=== PATIENT | male | born 1955 | race Caucasian/White ===

== ENCOUNTER 2019-07-01 21:58 | Inpatient (IN) ==
[2019-07-01] MEDS ORDERED: SODIUM CHLORIDE 0.9% 1000ML 2,000 ML IV ONE (22:12)
[2019-07-01] MEDS ORDERED: ALBUTEROL 0.083% NEBU SOLN 3 ML VIAL NEB STA (22:12)
[2019-07-01] MEDS ORDERED: cefTRIAXone SODIUM 2,000 MG/70 ML BAG IV STA (22:13)
[2019-07-01] MEDS ORDERED: methylPREDNISolone 125 MG/2 ML VIAL IV STA (22:13)
--- NOTE | 2019-07-01 22:15 | Emergency Department Note ---
Entered by Coco Leon acting as a scribe for History of Present Illness General Chief complaint: Respiratory Problems Stated complaint: TROUBLE BREATHING Source: patient Limitations: no limitations History of Present Illness Onset (ago): day(s) 1 Location: chest Pain Consistency: + constant Maximum Pain Intensity: 0 Quality: + other (SOB) Associated symptoms: + other (RLE swelling, sore throat, rhinorrhea) The patient is a 63 year old male who presents to the Emergency Room with complaints of constant SOB that began yesterday with the onset of a respiratory infection. He complains of rhinorrhea and a sore throat that began yesterday. the patient notes that he has a productive cough. He complains of RLE swelling and an ulcer, noting that this has is been progressing over the past 1.5 years. The patient notes a history of asthma. Patient denies ever being intubated for his asthma. He notes he does not have a primary care doctor and generally does not follow-up. Home Medications Home Medications Medication Instructions Recorded Confirmed Type No Known Home Medications 07/01/19 07/01/19 History Allergies Allergy/AdvReac Type Severity Reaction Status Date / Time No Known Allergies Allergy Verified 08/11/02 18:13 [id number] Allergy Unknown . Uncoded 07/01/19 22:50 Past Med/Surg History Medical History (Updated 07/02/19 @ 00:49 by Coco Leon) Asthma Staph infection Social History (Updated 07/01/19 @ 22:18 by Coco Leon) Preferred Language: [place] Communication Ability: Effective Feels Safe at Home: Yes Smoking Status: Never smoker Review of Systems See HPI for pertinent positives & negatives. and A total of 10 systems reviewed and were otherwise negative Physical Exam Vital Signs Vital Signs - 24 hr 07/01/19 21:59 07/01/19 22:23 07/01/19 22:26 Temperature 37.0 C Temperature Source Oral Pulse Rate 143 H 130 H Pulse Rate [Right Finger] Pulse Rate from SpO2 Sensor 131 H Respiratory Rate 22 15 Respiratory Effort / Characteristics Blood Pressure 149/87 H 146/97 H Blood Pressure Mean 107 115 Pulse Oximetry 92 91 89 L Oxygen Delivery Method Room Air Room Air Oxygen Flow Rate Sepsis Recent Fever Within 48 Hours No Sepsis Action Taken by Nursing No Action Required Oxygen Flow Rate - Titration 2 Pulse Oximetry Post Tiitration 93 07/01/19 22:28 07/01/19 22:31 07/01/19 22:41 Temperature Temperature Source Pulse Rate 130 H Pulse Rate [Right Finger] 135 H Pulse Rate from SpO2 Sensor 128 H Respiratory Rate 17 18 Respiratory Effort / Characteristics Non-Labored Spontaneous Blood Pressure 138/84 Blood Pressure Mean 102 Pulse Oximetry 93 93 91 Oxygen Delivery Method Nasal Cannula Room Air Oxygen Flow Rate 2 Sepsis Recent Fever Within 48 Hours Sepsis Action Taken by Nursing Oxygen Flow Rate - Titration Pulse Oximetry Post Tiitration 07/01/19 22:52 07/01/19 23:00 Temperature Temperature Source Pulse Rate 133 H 138 H Pulse Rate [Right Finger] Pulse Rate from SpO2 Sensor 133 H 138 H Respiratory Rate 22 15 Respiratory Effort / Characteristics Blood Pressure 138/84 137/74 Blood Pressure Mean 112 91 Pulse Oximetry 98 99 Oxygen Delivery Method Oxygen Flow Rate Sepsis Recent Fever Within 48 Hours Sepsis Action Taken by Nursing Oxygen Flow Rate - Titration Pulse Oximetry Post Tiitration GENERAL: sitting up in bed, moderate distress, dyspneic with conversation, wearing a hospital gown EYE EXAM: normal conjunctiva OROPHARYNX: no exudate, no erythema, lips, buccal mucosa, and tongue normal and mucous membranes are moist NECK: supple, no nuchal rigidity, no adenopathy, non-tender LUNGS: diffuse wheezing bilaterally, poor air movement HEART: no murmurs, S1 normal and S2 normal, tachycardic ABDOMEN: abdomen soft, non-tender, normo-active bowel sounds, no masses, no rebound or guarding. BACK: Back is symmetrical on inspection and there is no deformity, no midline tenderness, no CVA tenderness. SKIN: no rashes and no bruising UPPER EXTREMITIES: upper extremities are grossly normal. LOWER EXTREMITIES: RLE larger than left with a large ulcer and surrounding erythema measuring 18cm x 12cm. DP 2/4 NEURO EXAM: Normal sensorium, cranial nerves II-XII grossly intact, normal speech, no gross weakness of arms, no gross weakness of legs. Course Course ED COURSE: Vital signs were reviewed and showed tachycardia The patients medical record was reviewed The above diagnostic studies were performed and reviewed. ED treatments and interventions as stated above. 6: The patient was evaluated in room C09. A complete history and physical examination was performed. 0048: I spoke with Dr. Christina, [facility] hospitalist, about the patient's case. He will further evaluate the patient. 0052: Upon reevaluation, the patient is stable. I discussed my findings with the patient and he understands and agrees with the treatment plan. Based on the patients age, coexisting illnesses, exam and lab findings the decision to treat as an inpatient was made. The patient remained stable while under my care. The patient will be evaluated for further management. Administered Medications Levofloxacin/Dextrose (Levaquin/D5w) 750 mg in 150 mls @ 100 mls/hr IV Q24H NEREYDA Stop: 07/03/19 22:14 Last Admin: 07/01/19 23:35 Dose: 100 mls/hr Documented by: [id number] Discontinued Medications Albuterol (Ventolin 0.083% 2.5mg/3ml) 10 mg NEB NOW STA Stop: 07/01/19 22:13 Last Admin: 07/01/19 22:41 Dose: 10 mg Documented by: [id number] Sodium Chloride (Nss 1000ml) 2,000 mls @ 999 mls/hr IV .Q2H1M ONE Stop: 07/02/19 00:12 Last Admin: 07/01/19 23:14 Dose: 999 mls/hr Documented by: [id number] Ceftriaxone Sodium (Rocephin) 2,000 mg in 70 mls @ 140 mls/hr IV NOW STA Stop: 07/01/19 22:42 Last Infusion: 07/02/19 00:20 Dose: 0 mls/hr Documented by: [id number] Admin: 07/01/19 23:46 Dose: 140 mls/hr Documented by: [id number] Methylprednisolone (Solumedrol) 125 mg IV NOW STA Stop: 07/01/19 22:14 Last Admin: 07/01/19 23:35 Dose: 125 mg Documented by: [id number] Critical Care Time Critical Care Time: Yes Total Critical Care Time: 32 I have personally spent 32 minutes of critical care time in the direct management of this patient. This includes bedside care, interpretation of diagnostic studies, and testing, discussion with consultants, patient, and family members, and other required patient management activities. This 32 minutes is in excess of all separately billable procedures. Medical Decision Making Differential Diagnosis Differential diagnoses includes but is not limited to pneumonia, bronchitis, COPD/Asthma exacerbation, pneumothorax, pulmonary embolism, congestive heart failure, acute coronary syndrome Medical Records Attestation: I reviewed the patient's medical records. Home Medications Current Medication List: was personally reviewed by me Laboratory Data Attestation: I reviewed the patient's lab results. Result diagrams: 07/01/19 22:37 07/01/19 22:37 Lab Results 07/01/19 07/01/19 07/01/19 Range/Units 22:37 22:37 22:37 WBC 10.79 (4.8-10.8) K/uL RBC 4.67 L (4.7-6.1) M/uL Hgb 12.4 L (14.0-18.0) g/dL Hct 38.9 L (42-52) % MCV 83.3 (80-100) fL MCH 26.6 (25-34) pg MCHC 31.9 L (32-36) g/dL RDW Std Deviation 46.0 (36.4-46.3) fL RDW Coeff of Mitali 15.1 H (11.5-14.5) % Plt Count 320 (130-400) K/uL MPV 9.6 (7.4-10.4) fL Immature Gran % (Auto) 0.3 % Neut % (Auto) 83.3 % Lymph % (Auto) 6.6 % [place] % (Auto) 8.9 % Eos % (Auto) 0.7 % Baso % (Auto) 0.2 % Immature Gran # (Auto) 0.03 H (0.00-0.02) K/uL Neut # (Auto) 8.99 H (1.4-6.5) K/uL Lymph # (Auto) 0.71 L (1.2-3.4) K/uL [place] # (Auto) 0.96 H (0.11-0.59) K/uL Eos # (Auto) 0.08 (0-0.5) K/uL Baso # (Auto) 0.02 (0-0.2) K/uL PT 11.4 (9.0-12.0) Seconds INR 1.1 (0.9-1.1) APTT 25.3 (21.0-31.0) Seconds PTT Ratio 0.9 Sodium 135 L (136-145) mmol/L Potassium 3.8 (3.5-5.1) mmol/L Chloride 103 (98-107) mmol/L Carbon Dioxide 29 (21-32) mmol/L Anion Gap 3.0 (3-11) BUN 25 H (7-18) mg/dl Creatinine 1.18 (0.6-1.4) mg/dl Est Cr Clr Drug Dosing 76.4 ml/min Est GFR ( Amer) 76.7 Est GFR (Non-Af Amer) 66.2 BUN/Creatinine Ratio 21.1 H (10-20) Glucose 120 H (70-99) mg/dl Lactate (0.4-2.0) mmol/L Calcium 9.2 (8.5-10.1) mg/dl Magnesium 2.0 (1.8-2.4) mg/dl Total Bilirubin 0.3 (0.2-1) mg/dl AST 8 L (15-37) U/L ALT 11 L (12-78) U/L Alkaline Phosphatase 70 (45-117) U/L Troponin I < 0.015 (0-0.045) ng/ml Total Protein 8.8 H (6.4-8.2) gm/dl Albumin 2.7 L (3.4-5.0) gm/dl Globulin 6.1 H (2.5-4.0) gm/dl Albumin/Globulin Ratio 0.4 L (0.9-2) Influenza Type A Ag (Neg) Influenza Type B Ag (Neg) 07/01/19 07/01/19 Range/Units 22:37 22:45 WBC (4.8-10.8) K/uL RBC (4.7-6.1) M/uL Hgb (14.0-18.0) g/dL Hct (42-52) % MCV (80-100) fL MCH (25-34) pg MCHC (32-36) g/dL RDW Std Deviation (36.4-46.3) fL RDW Coeff of Mitali (11.5-14.5) % Plt Count (130-400) K/uL MPV (7.4-10.4) fL Immature Gran % (Auto) % Neut % (Auto) % Lymph % (Auto) % [place] % (Auto) % Eos % (Auto) % Baso % (Auto) % Immature Gran # (Auto) (0.00-0.02) K/uL Neut # (Auto) (1.4-6.5) K/uL Lymph # (Auto) (1.2-3.4) K/uL [place] # (Auto) (0.11-0.59) K/uL Eos # (Auto) (0-0.5) K/uL Baso # (Auto) (0-0.2) K/uL PT (9.0-12.0) Seconds INR (0.9-1.1) APTT (21.0-31.0) Seconds PTT Ratio Sodium (136-145) mmol/L Potassium (3.5-5.1) mmol/L Chloride (98-107) mmol/L Carbon Dioxide (21-32) mmol/L Anion Gap (3-11) BUN (7-18) mg/dl Creatinine (0.6-1.4) mg/dl Est Cr Clr Drug Dosing ml/min Est GFR ( Amer) Est GFR (Non-Af Amer) BUN/Creatinine Ratio (10-20) Glucose (70-99) mg/dl Lactate 1.5 (0.4-2.0) mmol/L Calcium (8.5-10.1) mg/dl Magnesium (1.8-2.4) mg/dl Total Bilirubin (0.2-1) mg/dl AST (15-37) U/L ALT (12-78) U/L Alkaline Phosphatase (45-117) U/L Troponin I (0-0.045) ng/ml Total Protein (6.4-8.2) gm/dl Albumin (3.4-5.0) gm/dl Globulin (2.5-4.0) gm/dl Albumin/Globulin Ratio (0.9-2) Influenza Type A Ag Neg for Influ A (Neg) Influenza Type B Ag Neg for Influ B (Neg) Imaging Data Attestation: I personally reviewed and interpreted this imaging study as follows: My Impression: XR CHEST 2V: No focal infiltrates. No pneumothorax. Radiologist's Impression: Radiology results as stated below per my review and the radiologist's interpretation: US VENOUS RIGHT LOWER EXTREMITY: No evidence of DVT in the visualized veins of the right lower extremity. Subcutaneous edema in the right lower leg. Right inguinal lymphadenopathy of u nknown etiology. Radiologist: Kaveh Oliva MD Study ready at 00:24 and initial results transmitted at 00:38. ECG Data Attestation: I personally reviewed and interpreted this ECG as follows: Indication: + SOB/dyspnea Rate (beats per minute): 140 Rhythm: + sinus tachycardia ECG Findings: + Other (low voltage, ST wave changes in the lateral and inferior leads) Comparison ECG Date: no prior available Additional Comments: Repeat EKG: Sinus tachycardia, 129 BPM, normal axis, no PVCs, normal QTC Blood Pressure Blood Pressure Findings: Elevated blood pressure Blood Pressure Disposition: further management by hospitalist MDM Narrative Patient is a 63-year-old male that presents the ER for shortness of breath associate with cough and runny nose which is been present for the past 2 days. He also notes that he has a history of asthma. He is becoming more more short of breath. Upon arrival he is dyspneic with conversation and can only get out 1 word. Heart rates tachycardic in the 140s. EKG I did believe was consistent with a sinus tach although considered a flutter as well. Patient was given IV fluids and blood work was obtained. Patient was given hour-long neb treatment. Patient was given IV Levaquin and IV Rocephin. Patient was also given IV steroids. Labs show no significant leukocytosis. Hemoglobin of 12. INR was unremarkable. BMP was unremarkable. Magnesium along with LFTs bilirubin and troponin was negative. Influenza was unremarkable. Chest x-ray per my read shows no focal infiltrate. EKG repeat shows a sinus tach with improving heart rate. Patient was monitored closely while in the ER. On reevaluation the wheezing had improved significantly. He is able to carry conversation but is still tachypneic. Discussed with the hospitalist for observation secondary to the large ulcer. Ultrasound shows no DVT. Do favor that he would benefit from observation 2/2 ulcer and asthma exacerbation. Impression & Plan Asthma exacerbation, Cellulitis, Ulcer, Tachycardia, Abnormal EKG Discharge Plan Visit Data Chief Complaint: Respiratory Problems Stated Complaint: TROUBLE BREATHING ED Provider: Chet Gregorio Discharge Problem: Asthma exacerbation, Cellulitis, Ulcer, Tachycardia, Abnormal EKG Patient Disposition: Being Evaluated by Hospitalist Forms Stand Alone Forms: [email or web address] Prescriptions Prescriptions: No Action No Known Home Medications RF: 0 Referrals Referrals: PCP,NO [Primary Care Provider] - Discharge Problem: Asthma exacerbation Qualifiers: Asthma severity: unspecified severity Asthma persistence: unspecified Qualified Code(s): J45.901 - Unspecified asthma with (acute) exacerbation Cellulitis Qualifiers: Site of cellulitis: extremity Site of cellulitis of extremity: lower extremity Laterality: unspecified laterality Qualified Code(s): L03.119 - Cellulitis of unspecified part of limb The scribe's documentation has been prepared under my direction and personally reviewed by me in its entirety. I confirm that the note above accurately reflects all work, treatment, procedures, and medical decision making performed by me.
[2019-07-01 22:54] LABS: Basophils # (auto) 0.02 K/uL (0-0.2); Basophils % (auto) 0.2 %; Eosinophils # (auto) 0.08 K/uL (0-0.5); Eosinophils % (auto) 0.7 %; Hematocrit (blood only) 38.9 % (42-52); Hemoglobin 12.4 g/dL (14.0-18.0); Immature Granulocytes # (auto) 0.03 K/uL (0.00-0.02); Immature Granulocytes % (auto) 0.3 %; Lymphocytes # (auto) 0.71 K/uL (1.2-3.4); Lymphocytes % (auto) 6.6 %; Mean Corpuscular Hemoglobin 26.6 pg (25-34); Mean Corpuscular Hgb Conc 31.9 g/dL (32-36); Mean Corpuscular Volume 83.3 fL (80-100); Mean Platelet Volume 9.6 fL (7.4-10.4); Monocytes # (auto) 0.96 K/uL (0.11-0.59); Monocytes % (auto) 8.9 %; Neutrophils # (auto) 8.99 K/uL (1.4-6.5); Neutrophils % (auto) 83.3 %; Platelet Count 320 K/uL (130-400); RDW Coefficient of Variation 15.1 % (11.5-14.5); Red Blood Count 4.67 M/uL (4.7-6.1); White Blood Count 10.79 K/uL (4.8-10.8)
[2019-07-01 23:05] LABS: INR 1.1 (0.9-1.1); Partial Thromboplastin Ratio 0.9; Partial Thromboplastin Time 25.3 Seconds (21.0-31.0); Prothrombin Time 11.4 Seconds (9.0-12.0)
[2019-07-01 23:11] LABS: Alanine Aminotransferase 11 U/L (12-78); Albumin Level 2.7 gm/dl (3.4-5.0); Aspartate Aminotransferase 8 U/L (15-37); BUN Creatinine Ratio 21.1 (10-20); Blood Urea Nitrogen 25 mg/dl (7-18); Calcium 9.2 mg/dl (8.5-10.1); Carbon Dioxide 29 mmol/L (21-32); Chloride 103 mmol/L (98-107); Creatinine Clr Calc Pharmacy 76.4 ml/min; Est GFR (African American) 76.7; Est GFR (Non-African American) 66.2; Glucose 120 mg/dl (70-99); Potassium 3.8 mmol/L (3.5-5.1); Sodium 135 mmol/L (136-145)
[2019-07-01 23:15] LABS: Albumin Globulin Ratio 0.4 (0.9-2); Alkaline Phosphatase 70 U/L (45-117); Bilirubin,Total 0.3 mg/dl (0.2-1); Globulin 6.1 gm/dl (2.5-4.0); Total Protein 8.8 gm/dl (6.4-8.2); Troponin I < 0.015 ng/ml (0-0.045)
[2019-07-01] MEDS: LEVOFLOXACIN/D5W 750 MG/150 ML BAG IV SCH (23:35)
--- NOTE | 2019-07-02 02:43 | History & Physical Report ---
Date of Service July 02, 2019 Assessment & Plan (1) Asthma exacerbation: Obs tele IV Levaquin Duonebs scheduled QID PRN Albuterol nebs IV Solumedrol 40mg Q6 hr Ordered CT chest. DVT prophylaxis = SCDs and Lovenox (2) Viral URI with cough: (3) Ulcer: Right lower ext. Has never been evaluated according to patient Wound team evaluation. He has chronic lymphedema right lower ext due to previous staph infection. History of Present Illness 63 y/o male presented to the ED with wheezing and SOB of 2 days duration. These symptoms are associated with what the patient describes as having a cold with rhinorrhea, sore throat and productive cough. No F/C. He reports that the only time his asthma is problematic is with respiratory illness. He takes no medications. Patient declines smoking or ETOH use. 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 On a separate issue, he reports having a wound on his right lower leg which has been progressing over the past 1.5 years. He has no pain associated with this, but does report that the area becomes itchy at times. He has lymphedema to the right lower ext which was secondary to a staph infection years ago. Primary Care Provider: NO PCP Allergies Allergy/AdvReac Type Severity Reaction Status Date / Time No Known Allergies Allergy Verified 08/11/02 18:13 [id number] Allergy Unknown . Uncoded 07/01/19 22:50 Home Medications Home Medications Medication Instructions Recorded Confirmed Type No Known Home Medications 07/01/19 07/01/19 History Past Med/Surg History Medical History Asthma Staph infection Social History Preferred Language: Bengali Communication Ability: Effective Feels Safe at Home: Yes Smoking Status: Never smoker Review of Systems Review of Systems: Constitutional- no fever; no weight loss Eyes- no acute visual changes ENT-As in HPI Pulmonary- As in HPI Cardiac- no chest pain, no palpitations, no orthopnea. GI- no nausea, no vomiting, no diarrhea, no melena, no hematochezia - no dysuria, no hematuria Musculoskeletal- no arthralgias, no myalgias Derm- As in HPI Hematologic- no unusual bruising, no unusual bleeding Lymphatics- no adenopathy Endocrine- no polyuria or polydipsia; no heat or cold intolerance Neuro- no headaches, no focal neurologic symptoms Psych- no anxiety, no depression Physical Exam Physical Exam: General- adult male, appears disheveled. Poor hygiene. Head- atraumatic Eyes- PERRL, EOMI, anicteric ENT- oropharynx clear Neck- supple, no JVD, no adenopathy, no thyromegaly; carotids +2/2, no bruits appreciated Lungs- Inspiratory and expiratory wheezes b/l, No rhonchi or crackles. Heart- regular rhythm; no murmur, no gallop, no rub appreciated Abdomen- normal bowel sounds, soft, nontender. Extremities- RLE larger than left with a large ulcer and surrounding erythema measuring 18cm x 12cm. + hemosiderin changes Right lower. Neuro- alert, oriented x 3; PERRL, EOMI; automotive collision estimator II-XII grossly intact, non-focal. Skin- warm & dry, Right lower ext has large ulcer and surrounding erythema measuring 18cm x 12cm. + hemosiderin changes Right lower. Results & Data Vital Signs (Past 12 Hours) Vital Signs Temp Pulse Pulse Resp BP Pulse Ox 07/02/19 02:30 98 H 18 91 07/02/19 02:00 96 H 17 90 07/02/19 01:30 94 H 18 92 07/02/19 01:00 98 H 25 H 07/02/19 00:31 102 H 20 94 07/02/19 00:30 101 H 18 133/63 94 07/02/19 00:25 104 H 34 H 95 07/01/19 23:31 137 H 22 99 07/01/19 23:30 135 H 20 114/63 99 07/01/19 23:00 138 H 15 137/74 99 07/01/19 22:52 133 H 22 138/84 98 07/01/19 22:41 135 H 18 91 07/01/19 22:31 130 H 17 138/84 93 07/01/19 22:28 93 07/01/19 22:26 89 L 07/01/19 22:23 130 H 15 146/97 H 91 07/01/19 21:59 37.0 C 143 H 22 149/87 H 92 Laboratory Results Laboratory Results WBC 10.79 K/uL (4.8-10.8) 07/01/19 22:37 RBC 4.67 M/uL (4.7-6.1) L 07/01/19 22:37 Hgb 12.4 g/dL (14.0-18.0) L 07/01/19 22:37 Hct 38.9 % (42-52) L 07/01/19 22:37 MCV 83.3 fL (80-100) 07/01/19 22:37 MCH 26.6 pg (25-34) 07/01/19 22:37 MCHC 31.9 g/dL (32-36) L 07/01/19 22:37 RDW Std Deviation 46.0 fL (36.4-46.3) 07/01/19 22: RDW Coeff of Mitali 15.1 % (11.5-14.5) H 07/01/19 22:37 Plt Count 320 K/uL (130-400) 07/01/19 22:37 MPV 9.6 fL (7.4-10.4) 07/01/19 22:37 Immature Gran % (Auto) 0.3 % 07/01/19 22:37 Neut % (Auto) 83.3 % 07/01/19 22:37 Lymph % (Auto) 6.6 % 07/01/19 22:37 [place] % (Auto) 8.9 % 07/01/19 22:37 Eos % (Auto) 0.7 % 07/01/19 22:37 Baso % (Auto) 0.2 % 07/01/19 22:37 Immature Gran # (Auto) 0.03 K/uL (0.00-0.02) H 07/01/19 22:37 Neut # (Auto) 8.99 K/uL (1.4-6.5) H 07/01/19 22:37 Lymph # (Auto) 0.71 K/uL (1.2-3.4) L 07/01/19 22:37 [place] # (Auto) 0.96 K/uL (0.11-0.59) H 07/01/19 22:37 Eos # (Auto) 0.08 K/uL (0-0.5) 07/01/19 22:37 Baso # (Auto) 0.02 K/uL (0-0.2) 07/01/19 22:37 PT 11.4 Seconds (9.0-12.0) 07/01/19 22:37 INR 1.1 (0.9-1.1) 07/01/19 22:37 APTT 25.3 Seconds (21.0-31.0) 07/01/19 22:37 PTT Ratio 0.9 07/01/19 22:37 Sodium 135 mmol/L (136-145) L 07/01/19 22:37 Potassium 3.8 mmol/L (3.5-5.1) 07/01/19 22:37 Chloride 103 mmol/L (98-107) 07/01/19 22:37 Carbon Dioxide 29 mmol/L (21-32) 07/01/19 22:37 Anion Gap 3.0 (3-11) 07/01/19 22:37 BUN 25 mg/dl (7-18) H 07/01/19 22:37 Creatinine 1.18 mg/dl (0.6-1.4) 07/01/19 22:37 Est Cr Clr Drug Dosing 76.4 ml/min 07/01/19 22:37 Est GFR ( Amer) 76.7 07/01/19 22:37 Est GFR (Non-Af Amer) 66.2 07/01/19 22:37 BUN/Creatinine Ratio 21.1 (10-20) H 07/01/19 22:37 Glucose 120 mg/dl (70-99) H 07/01/19 22:37 Lactate 1.5 mmol/L (0.4-2.0) 07/01/19 22:37 Calcium 9.2 mg/dl (8.5-10.1) 07/01/19 22:37 Magnesium 2.0 mg/dl (1.8-2.4) 07/01/19 22:37 Total Bilirubin 0.3 mg/dl (0.2-1) 07/01/19 22:37 AST 8 U/L (15-37) L 07/01/19 22:37 ALT 11 U/L (12-78) L 07/01/19 22:37 Alkaline Phosphatase 70 U/L (45-117) 07/01/19 22:37 Troponin I < 0.015 ng/ml (0-0.045) 07/01/19 22:37 Total Protein 8.8 gm/dl (6.4-8.2) H 07/01/19 22:37 Albumin 2.7 gm/dl (3.4-5.0) L 07/01/19 22:37 Globulin 6.1 gm/dl (2.5-4.0) H 07/01/19 22:37 Albumin/Globulin Ratio 0.4 (0.9-2) L 07/01/19 22:37 Influenza Type A Ag Neg for Influ A (Neg) 07/01/19 22:45 Influenza Type B Ag Neg for Influ B (Neg) 07/01/19 22:45 Code Status & VTE Plan VTE Prophylaxis Plan VTE Prophylaxis will be ordered: Yes PG Care Time/CCT Total # of Minutes Spent Total Time Spent: 55 Total Time Spent with Patient: Total time spent is greater than 50% in coordination of care (as documented) at patient's floor/unit and/or counseling patient: (1) Asthma exacerbation Asthma persistence: unspecified Asthma severity: unspecified severity Qualified Code(s): J45.901 - Unspecified asthma with (acute) exacerbation
[2019-07-02] MEDS ORDERED: METOPROLOL TARTRATE 1 MG/ML VIAL IV PRN (03:12)
[2019-07-02] MEDS ORDERED: ALBUTEROL 0.083% NEBU SOLN 3 ML VIAL NEB PRN (03:12)
[2019-07-02] MEDS ORDERED: ONDANSETRON INJ 2 MG/ML 2 ML VIAL IV PRN (03:12)
[2019-07-02] MEDS ORDERED: ACETAMINOPHEN 325 MG TAB PO PRN (03:12)
--- NOTE | 2019-07-02 05:34 | XRay Report ---
XR chest 1V portable CLINICAL HISTORY: SEPSIS dyspnea COMPARISON STUDY: No previous studies for comparison. FINDINGS: Mild emphysematous change. No focal infiltrate. Diaphragms are flattened. IMPRESSION: Mild emphysematous change. Otherwise negative study. ACT 112: Negative or not required by law. The above report was generated using voice recognition software. It may contain grammatical, syntax or spelling errors. Electronically signed by: Tino Mendoza M.D. 07/02/2019 5:33 AM
--- NOTE | 2019-07-02 05:43 | Ultrasound Report ---
US venous doppler LE RT CLINICAL HISTORY: rle larger then left PAIN. EDEMA. COMPARISON STUDY: No previous studies for comparison. FINDINGS: Real-time and color flow Doppler imaging were performed. Flow was seen within the femoral, popliteal and calf veins with no intraluminal thrombus demonstrated. The saphenous vein is patent. IMPRESSION: No evidence of deep venous thrombosis. Several reactive nodes of the right inguinal regio n ACT 112: Negative or not required by law. The above report was generated using voice recognition software. It may contain grammatical, syntax or spelling errors. Electronically signed by: Tino Mendoza M.D. 07/02/2019 5:41 AM
[2019-07-02 05:54] LABS: Hemoglobin 11.8 g/dL (14.0-18.0); Mean Corpuscular Hgb Conc 31.9 g/dL (32-36); Mean Corpuscular Volume 81.5 fL (80-100); Mean Platelet Volume 9.7 fL (7.4-10.4); Platelet Count 300 K/uL (130-400); RDW Coefficient of Variation 15.2 % (11.5-14.5); RDW Standard Deviation 44.5 fL (36.4-46.3); Red Blood Count 4.54 M/uL (4.7-6.1); White Blood Count 9.41 K/uL (4.8-10.8)
[2019-07-02] MEDS: methylPREDNISolone 40 MG in SYRINGE 0 ML IV SCH ×4 (05:57→23:56)
[2019-07-02 06:41] LABS: BUN Creatinine Ratio 18.4 (10-20); Calcium 8.7 mg/dl (8.5-10.1); Creatinine Clr Calc Pharmacy 102.5 ml/min; Est GFR (African American) 107.5; Est GFR (Non-African American) 92.7; Potassium 3.7 mmol/L (3.5-5.1)
[2019-07-02] MEDS: ALBUT/IPRATROP 3MG/0.5MG NEB 3 ML VIAL NEB SCH ×3 (07:08→15:00)
[2019-07-02] MEDS: PANTOprazole 40 MG TAB PO SCH (09:28)
[2019-07-02] MEDS: ENOXAPARIN INJ 40 MG/0.4 ML SYR SQ SCH (09:28)
--- NOTE | 2019-07-02 09:31 | CT Scan Report ---
CT chest wo con CT DOSE: 317.78 mGy.cm HISTORY: Dyspnea Cough, wheezing. TECHNIQUE: Multiaxial CT images of the chest were performed without contrast. A dose lowering techni que was utilized adhering to the principles of ALARA. COMPARISON: None. FINDINGS: The lungs are clear. The mediastinal vascular structures are within normal limits. No media stinal or hilar lymphadenopathy. No pleural effusion or pneumothorax. Limited views of the upper abdo men demonstrate a normal liver and spleen. Mild emphysematous change. IMPRESSION: Mild emphysematous change. No acute process. ACT 112: Negative or not required by law. The above report was generated using voice recognition software. It may contain grammatical, syntax or spelling errors. Electronically signed by: Tino Mendoza M.D. 07/02/2019 9:30 AM
--- NOTE | 2019-07-02 12:51 | Electrocardiogram Report ---
Test Reason : Blood Pressure : / mmHG Vent. Rate : 140 BPM Atrial Rate : 144 BPM P-R Int : 000 ms QRS Dur : 106 ms QT Int : 324 ms P-R-T Axes : 000 050 028 degrees QTc Int : 494 ms Poor data quality, interpretation may be adversely affected Sinus tachycardia Nonspecific ST abnormality Abnormal ECG No previous ECGs available Confirmed by Myles Guzmán ([id number]) on 07/02/2019 12:51:22 PM Referred By: REFERRED SELF Confirmed By:Myles Guzmán
[2019-07-02] MEDS: LEVALBUTEROL 1.25MG/0.5ML NEB NEB SCH (19:22)
[2019-07-02] MEDS: LEVOFLOXACIN/D5W 750 MG/150 ML BAG IV SCH (20:39)
[2019-07-03] MEDS: LEVALBUTEROL 1.25MG/0.5ML NEB NEB SCH ×4 (00:29→18:58)
[2019-07-03] MEDS: ENOXAPARIN INJ 40 MG/0.4 ML SYR SQ SCH (07:48)
[2019-07-03] MEDS: methylPREDNISolone 40 MG in SYRINGE 0 ML IV SCH ×4 (07:48→23:58)
[2019-07-03] MEDS: PANTOprazole 40 MG TAB PO SCH (07:48)
--- NOTE | 2019-07-03 11:07 | Hospitalist Progress Note ---
Date of Service July 03, 2019 Assessment & Plan (1) Asthma exacerbation: Obs tele Will consider admission as patient needs to be seen by wound care for problem #2 continue IV Levaquin Duonebs scheduled QID PRN Albuterol nebs will taper IV Solumedrol Ordered CT chest: reviewed DVT prophylaxis = SCDs and Lovenox (2) Viral URI with cough: likely viral etiology. will need PFT as outpatient. (3) Ulcer: Right lower ext. Has never been evaluated according to patient Wound team evaluation. this will be done on Thursday He has chronic lymphedema right lower ext due to previous staph infection. Subjective 63 yo male reports feeling better in regards to his breathing. He informs me that his right lower leg has had lymphedema since an infection he had in his ankle on 2000. He states he has developed a wound which worsened about a year and a half ago. Since then he has been wrapping it on his own. He does not followup with any providers. As the wound worsened, he decided to come to the hospital. Review of Systems Review of Systems: Constitutional- no fever; no weight loss Eyes- no acute visual changes ENT-As in HPI Pulmonary- As in HPI Cardiac- no chest pain, no palpitations, no orthopnea. GI- no nausea, no vomiting, no diarrhea, no melena, no hematochezia - no dysuria, no hematuria Musculoskeletal- no arthralgias, no myalgias Derm- As in HPI Hematologic- no unusual bruising, no unusual bleeding Lymphatics- no adenopathy Endocrine- no polyuria or polydipsia; no heat or cold intolerance Neuro- no headaches, no focal neurologic symptoms Psych- no anxiety, no depression Physical Exam Physical Exam: General- adult male, Poor hygiene. Head- atraumatic Eyes- PERRL, EOMI, anicteric ENT- oropharynx clear Neck- supple, no JVD, no adenopathy, no thyromegaly; carotids +2/2, no bruits appreciated Lungs- Inspiratory and expiratory wheezes b/l, No rhonchi or crackles. Heart- regular rhythm; no murmur, no gallop, no rub appreciated Abdomen- normal bowel sounds, soft, nontender. Extremities- RLE larger than left with a large ulcer and surrounding erythema measuring 18cm x 12cm. Neuro- alert, oriented x 3; PERRL, EOMI; silver solution mixer II-XII grossly intact, non-focal. . Results & Data Vital Signs (Past 12 Hours) Vital Signs Temp Pulse Pulse Resp BP Pulse Ox 07/03/19 07:24 36.7 C 74 18 123/69 93 07/03/19 07:10 82 18 95 07/03/19 07:09 88 07/03/19 03:27 36.7 C 87 19 130/72 94 07/03/19 00:29 93 H 16 93 07/02/19 23:41 36.8 C 87 20 111/58 L 91 PG Care Time/CCT Total # of Minutes Spent Total Time Spent with Patient: Total time spent is greater than 50% in coordination of care (as documented) at patient's floor/unit and/or counseling patient: (1) Asthma exacerbation Asthma persistence: unspecified Asthma severity: unspecified severity Qualified Code(s): J45.901 - Unspecified asthma with (acute) exacerbation
--- NOTE | 2019-07-03 12:50 | Electrocardiogram Report ---
Test Reason : Blood Pressure : / mmHG Vent. Rate : 129 BPM Atrial Rate : 129 BPM P-R Int : 144 ms QRS Dur : 110 ms QT Int : 332 ms P-R-T Axes : 000 072 028 degrees QTc Int : 486 ms Sinus tachycardia Otherwise normal ECG When compared with ECG of 01-JUL-2019 22:09, No significant change was found Confirmed by Myles Guzmán ([id number]) on 07/03/2019 12:50:52 PM Referred By: REFERRED SELF Confirmed By:Myles Guzmán
[2019-07-03] MEDS: AZITHROMYCIN 250 MG TAB PO SCH (21:18)
[2019-07-04] MEDS: LEVALBUTEROL 1.25MG/0.5ML NEB NEB SCH ×4 (00:55→19:43)
[2019-07-04] MEDS: PANTOprazole 40 MG TAB PO SCH (08:00)
[2019-07-04] MEDS: predniSONE 50 MG TAB PO SCH (08:00)
[2019-07-04] MEDS: ENOXAPARIN INJ 40 MG/0.4 ML SYR SQ SCH (08:02)
[2019-07-04] MEDS: AZITHROMYCIN 250 MG TAB PO SCH (21:05)
--- NOTE | 2019-07-04 22:39 | Hospitalist Progress Note ---
Date of Service July 04, 2019 Assessment & Plan (1) Asthma exacerbation: nearly resolved, responding well to steroids, antibiotics and nebulizers Duonebs scheduled QID Prednisone with gradual taper on discharge complete [address] chest: mild emphysematous changes, no other abnormalities d/c tomorrow on Prednisone and Azithromycin (2) Viral URI with cough: likely viral etiology. will need PFT as outpatient once he is recovered (3) Ulcer: Right lower ext. Has never been evaluated according to patient He has chronic lymphedema right lower ext due to previous staph infection. appreciate e business project manager visit today will check arterial dopplers tomorrow AM, will plan for d/c tomorrow with wound clinic follow up next Thursday d/c instruction: clean with sterile saline daily, cover with Aquacel Ag, secure with Kerlix Subjective patient breathing a lot better, responding well to steroids and nebulizers minimal cough, no chest pain eating well describes his lower extremity wound, has gotten worse over past year says he has never seen the wound clinic or even a PCP the skin will be itchy from time to time, no pain, occasional weaping of the wound never bleeds, no erythema around the wound, occasional fever/chills discussed with e business project manager, recommends getting arterial dopplers as LUCAS was not reliable Review of Systems Review of Systems: All systems reviewed & are unremarkable except as noted in HPI & below Respiratory: + cough and + dyspnea on exertion; no dyspnea, no sputum production and no wheezing Cardiovascular: no chest pain and no edema Integumentary: + wounds (lymphedema wound) Physical Exam Constitutional: WD/WN, vitals as above Eyes: PERRL, conjunctivae normal, anicteric sclerae ENMT: external ear and nose normal, oropharynx normal Neck: trachea midline, no thyromegaly Respiratory: normal respiratory effort; no respiratory distress Auscultation: + rhonchi and + wheezes (bilaterally) Cardiovascular: RRR, no murmur, no edema Gastrointestinal (Abdomen): normal bowel sounds, soft, nontender, no hepatosplenomegaly Musculoskeletal: no cyanosis or clubbing, extremities motor strength 5/5 Skin: + wound (right medial lower leg, open, wet, granulation tissue) Neurologic: patellar DTR's 2+ bilat, sensation intact and PERRL, EOMI, accommodation nl, no face palsy, no dysarthria Psychiatric: A+Ox3, euthymic affect Lymphatic: no cervical or axillary lymphadenopathy Results & Data Vital Signs (Past 12 Hours) Vital Signs Temp Pulse Resp BP Pulse Ox 07/04/19 19:44 81 16 94 07/04/19 15:26 36.7 C 84 18 135/79 98 07/04/19 13:48 91 H 18 91 Medications Administered Current Inpatient Medications Acetaminophen (Tylenol) 650 mg PO Q4H PRN PRN Reason: mild pain or fever Stop: 08/01/19 03:11 Albuterol (Ventolin 0.083% 2.5mg/3ml) 2.5 mg NEB Q2H PRN PRN Reason: Shortness Of Breath Or Wheezing Stop: 08/01/19 03:11 Azithromycin (Zithromax) 250 mg PO QPM [facility]; Protocol Stop: 07/05/19 21:01 Last Admin: 07/04/19 21:05 Dose: 250 mg Documented by: Enoxaparin Sodium (Lovenox) 40 mg SQ Q24H [facility] Stop: 08/01/19 08:59 Last Admin: 07/04/19 08:02 Dose: Not Given Documented by: Levalbuterol HCl (Xopenex 1.25mg/0.5ml Neb) 1.25 mg NEB Q6R [facility] Stop: 08/01/19 18:59 Last Admin: 07/04/19 19:43 Dose: 1.25 mg Documented by: Metoprolol Tartrate (Lopressor) 5 mg IV Q4 PRN PRN Reason: HR>110 sustained for > 1min. Stop: 08/01/19 03:11 Ondansetron HCl (Zofran) 4 mg IV Q6H PRN PRN Reason: nausea or vomiting Stop: 08/01/19 03:11 Pantoprazole Sodium (Protonix) 40 mg PO QAM [facility] Stop: 08/01/19 08:59 Last Admin: 07/04/19 08:00 Dose: 40 mg Documented by: Prednisone (Prednisone) 50 mg PO DAILY [facility] Stop: 08/03/19 08:59 Last Admin: 07/04/19 08:00 Dose: 50 mg Documented by: PG Care Time/CCT Total # of Minutes Spent Total Time Spent with Patient: Total time spent is greater than 50% in chest pain coordinator rdination of care (as documented) at patient's floor/unit and/or counseling patient: (1) Asthma exacerbation Asthma persistence: unspecified Asthma severity: unspecified severity Qualified Code(s): J45.901 - Unspecified asthma with (acute) exacerbation
[2019-07-05] MEDS: LEVALBUTEROL 1.25MG/0.5ML NEB NEB SCH ×3 (00:45→13:13)
[2019-07-05] MEDS: PANTOprazole 40 MG TAB PO SCH (08:42)
[2019-07-05] MEDS: predniSONE 50 MG TAB PO SCH (08:42)
[2019-07-05] MEDS: ENOXAPARIN INJ 40 MG/0.4 ML SYR SQ SCH (08:43)
--- NOTE | 2019-07-05 08:53 | Ultrasound Report ---
US arterial duplex LE BI CLINICAL HISTORY: chronic wounds, distal leg COMPARISON STUDY: No previous studies for comparison. FINDINGS: Ankle brachial indices were not obtained due to lower leg wounds. There is triphasic flow within the right common femoral, superficial femoral, and popliteal arteries. There was triphasic flow within the visualized portions the right posterior tibial peroneal and ante rior tibial arteries. The distal vessels were not visualized due to overlying bandages. In the left there was triphasic flow within the left common femoral superficial femoral and popliteal arteries. There is triphasic flow within the left anterior tibial posterior tibial and peroneal rosanna janet. No high velocity jets were visualized. IMPRESSION: No ultrasonographic evidence of lower extremity arterial stenosis. ACT 112: Negative or not required by law. Electronically signed by: Hemant Fisher M.D. 07/05/2019 8:52 AM
[2019-07-05 11:08] LABS: Creatinine Clr Calc Pharmacy 89.3 ml/min; Est GFR (African American) 92.6; Est GFR (Non-African American) 79.9
--- NOTE | 2019-07-05 13:38 | Discharge Summary ---
Date of Service July 05, 2019 Discharge Exam Constitutional WD/WN, vitals as above Eyes PERRL, conjunctivae normal, anicteric sclerae ENMT external ear and nose normal, oropharynx normal Neck trachea midline, no thyromegaly Respiratory normal respiratory effort; no respiratory distress Auscultation: + rhonchi and + wheezes (bilaterally) Cardiovascular RRR, no murmur, no edema Gastrointestinal (Abdomen) normal bowel sounds, soft, nontender, no hepatosplenomegaly Musculoskeletal no cyanosis or clubbing, extremities motor strength 5/5 Skin + wound (right medial lower leg, open, wet, granulation tissue) Neurologic patellar DTR's 2+ bilat, sensation intact and PERRL, EOMI, accommodation nl, no face palsy, no dysarthria Psychiatric A+Ox3, euthymic affect Lymphatic no cervical or axillary lymphadenopathy Discharge Data Allergies Allergy/AdvReac Type Severity Reaction Status Date / Time No Known Allergies Allergy Verified 08/11/02 18:13 Consultations 07/02/19 00:31 ED Decision to Admit Stat 07/02/19 03:12 Consult Case Management - Discharge Planning Routine Ordered Studies 07/01/19 22:15 US venous doppler LE RT Urgent 07/02/19 03:12 CT chest wo con Routine 07/05/19 08:00 US arterial duplex LE BI Routine Hospital Course (1) Asthma exacerbation: nearly resolved, responding well to steroids, antibiotics and nebulizers Duonebs scheduled QID Prednisone with gradual taper on discharge complete [address] chest: mild emphysematous changes, no other abnormalities d/c tomorrow on Prednisone and Azithromycin (2) Viral URI with cough: likely viral etiology. will need PFT as outpatient once he is recovered (3) Ulcer: Right lower ext. Has never been evaluated according to patient He has chronic lymphedema right lower ext due to previous staph infection. appreciate cake cutter machine visit today will check arterial dopplers tomorrow AM, will plan for d/c tomorrow with wound clinic follow up next Thursday d/c instruction: clean with sterile saline daily, cover with Aquacel Ag, secure with Kerlix Discharge Plan Discharge Items Patient Disposition: Home - Home Health Services Reason For Visit: ASTHMA EXACERBATION Discharge Diagnosis: Asthma exacerbation Venous stasis ulcer, lymphedema Condition on Discharge: Good Goals: complete treatment of asthma exacerbation follow up with wound clinic rest, stay off feet for next two weeks Activity: Per Instructions section Lifting: None Bathing Comment: keep wrap dry Exercise/Sports: Gradually increase as tolerated Driving/Machine Use: No limitations Weightbearing: Full weightbearing Non-emergency contact: Primary Care Provider Call non-emergency contact if: you have any medication questions, your symptoms worsen, your pain is not controlled and you have a fever Follow-up/Referrals: Kulwant Alonzo, [Physician] - 07/11/19 11:00 am (An appointment has been made at your request with Dr. Alonzo to establish as PCP. Please call the [address] [facility] with any questions or concerns. ) Diet: Regular Addtl Attending Provider Instructions: Medications: - PREDNISONE: complete a taper over next 12 days, starting tomorrow take 40mg daily, decrease by 10mg every three days until complete - AZITHROMYCIN: two more doses needed, 250mg daily - ALBUTEROL: prescribed inhaler to use every 6 hours as needed for shortness of breath or wheezing Asthma exacerbation: responded well to steroids, antibiotics and nebulizers d/c to home on Prednisone and Zithromax, albuterol will follow up with Dr. Alonzo on 07/11/19 at 11am Right lower extremity wound, lymphedema evaluated by cake cutter machine, you need to follow up with wound clinic on 07/11 at 1:30pm compression wrap applied today keep this in place until you see wound clinic on 07/11 if the wrap gets too tight you can cut it off prior to that time if home health is arranged, they could change the wrap or Thursday KEEP WRAP DRY Pending Studies at Discharge: No Stand-Alone Forms: [facility], Work/School Release (Inpt), Smoking Cessation Medications and DC Order Prescriptions: New azithromycin [Zithromax] 250 mg Tablet 250 mg PO QPM 2 Days Qty: 2 RF: 0 albuterol sulfate 90 mcg/actuation HFA aerosol inhaler 1 puffs INH Q6H PRN (Reason: shortness of breath or wheezing) Qty: 18 RF: 3 prednisone 10 mg tablet 10 mg PO UD 12 Days Qty: 12 RF: 0 No Action No Known Home Medications RF: 0 Discharge Orders: Discharge Order (Routine); Ordered 07/05/19 Ordered By: Clayton Cruz Admission Data Admit Date/Time: 07/04/19 01:19 Attending Provider: Clayton Cruz Admit Provider: Yousif Christina Primary Care Provider: PCP,NO Other Providers: Yousif Christina Other Interventions: Discharge Summary Assessment (RN) Last Done: 07/05/19 11:37
== END 2019-07-05 13:58 | disposition home health service (06) | DRG 202 ==
LOC: 2N 21:58 → ED 21:58 → SUATTDRO 07-02 01:01 → 2N 07-02 02:54 → SUATTDRO 07-04 01:19 → 2N 07-05 01:30